=== PATIENT | female | born 1965 | race Caucasian/White ===

== ENCOUNTER 2019-11-15 05:15 | Emergency (ER) | payer SELFPAY ==
[~2019-11-15] VITALS: Ht 167 cm; Wt 97.0 kg
[2019-11-15] MEDS ORDERED: FURO-125 PO (05:31)
[2019-11-15] MEDS ORDERED: GABA-488 PO (05:31)
[2019-11-15] MEDS ORDERED: NS IV 1000 ML 1,000 ML IV SCH (05:41)
--- NOTE | 2019-11-15 05:43 | ED Back Pain ---
General Chief Complaint: Back Problems Stated Complaint: SEVERE ABD PAIN Nursing Triage Note: PT PRESENTS TO ROOM SIX AMBULATORY X1 ASSIST BY C/O SEVERE R FLANK PAIN THAT ONSET AT 0230 THIS AM. PT DENIES A HX OF KIDNEY STONES OR KIDNEY DISORDERS. STATES SHE RECENTLY REQUIRED BEING PLACED ON A WATER PILL FOR PEDAL EDEMA. Nursing Sepsis Screen: No Definite Risk Source of Information: Patient, Spouse Exam Limitations: No Limitations (DEDE BENNETT) History of Present Illness Date Seen by Provider: Nov 15, 2019 Time Seen by Provider: 05:32 Initial Comments Patient presents ER by private conveyance chief complaint about 3 hours prior to arrival she began to express some right flank pain that was constant, gripping, unrelenting. She's never had a kidney stone before. She does have a history of back pain but it's more in her neck and she does not take any medicines routinely for that. She says this is different and much more intense. She is unable to get comfortable. She is having nausea with several episodes of the vomiting. No fevers or chills, dysuria, hematuria, abdominal pain. (DEDE BENNETT) Initial Comments LMP 06/2019. Other Comments PCP: KYRA-BERTHA (BRAD PAREDES DO) Allergies and Home Medications Allergies Coded Allergies: No Known Drug Allergies (Unverified , 11/15/19) Home Medications Ciprofloxacin HCl 500 Mg Tablet, 500 MG PO BID Prescribed by: BRAD PAREDES on 11/15/19 0709 Hydrocodone Bit/Acetaminophen 1 Tab Tab, 1-2 EACH PO Q6H PRN for PAIN-MODERATE Prescribed by: BRAD PAREDES on 11/15/19 0709 Ondansetron 4 Mg Tab.rapdis, 4 MG PO Q4H Prescribed by: BRAD PAREDES on 11/15/19 0709 Tamsulosin HCl 0.4 Mg Cap, 0.4 MG PO DAILY Prescribed by: BRAD PAREDES on 11/15/19 0709 Patient Home Medication List Home Medication List Reviewed: Yes (DEDE BENNETT) Review of Systems Constitutional: No chills, No fever EENTM: No ear discharge, No ear pain Respiratory: No cough, No short of breath Cardiovascular: No chest pain, No edema Gastrointestinal: No abdominal pain, No constipation, No diarrhea; nausea, vomiting Genitourinary: No dysuria, No hematuria Musculoskeletal: see HPI, back pain; No joint pain (DEDE BENNETT) All Other Systems Reviewed Negative Unless Noted: Yes (DEDE BENNETT) Past Tecgazc-Vcegne-Huvbga Hx Patient Social History Alcohol Use: Denies Use Recreational Drug Use: No Smoking Status: Current Everyday Smoker Type Used: Cigarettes Recent Foreign Travel: No Contact w/Someone Who Travel: No Recent Infectious Disease Expo: No Recent Hopitalizations: No Physical Abuse: No Sexual Abuse: No Mistreated: No Fear: No (DEDE BENNETT) Immunizations Up To Date Tetanus Booster (TDap): Unknown PED Vaccines UTD: Yes (DEDE BENNETT) Past Medical History Surgeries: Yes Tubal Ligation Respiratory: No Cardiac: No Neurological: Yes (migraines) : 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 oz. kg; 34.00 BMI Method: General Appearance: WD/WN, Moderate Distress HEENT: PERRL/EOMI, Pharynx Normal, Moist Mucous Membranes Neck: Full Range of Motion, Normal Inspection Cardiovascular: Regular Rate, Rhythm, No Edema, Normal Peripheral Pulses Respiratory: Lungs Clear, Normal Breath Sounds, No Accessory Muscle Use, No Respiratory Distress Peripheral Pulses: 2+ Radial Pulses (R), 2+ Radial Pulses (L) Gastrointestinal: Normal Bowel Sounds, Non Tender, Soft Back: Normal Inspection, No Vertebral Tenderness; No CVA Tenderness (L); CVA Te nderness (R) Extremity: Normal Capillary Refill, Normal Inspection, Non Tender Neurologic/Psychiatric: Alert, Oriented x3 Skin: Normal Color, Warm/Dry (DEDE BENNETT) Progress/Results/Core Measures Results/Orders Lab Results Laboratory Tests Test 11/15/19 05:30 11/15/19 05:40 Range/Units Urine Color YELLOW Urine Clarity TURBID Urine pH 6.0 5-9 Urine Specific Shepherd 1.025 H 1.016-1.022 Urine Protein NEGATIVE NEGATIVE Urine Glucose (UA) NEGATIVE NEGATIVE Urine Ketones NEGATIVE NEGATIVE Urine Nitrite NEGATIVE NEGATIVE Urine Bilirubin NEGATIVE NEGATIVE Urine Urobilinogen 0.2 < = 1.0 MG/DL Urine Leukocyte Esterase 1+ H NEGATIVE Urine RBC (Auto) 1+ H NEGATIVE Urine RBC NONE /HPF Urine WBC 10-25 H /HPF Urine Squamous Epithelial Cells 5-10 /HPF Urine Crystals PRESENT H /LPF Urine Calcium Oxalate Crystals MODERATE H /LPF Urine Bacteria FEW H /HPF Urine Casts NONE /LPF Urine Mucus NEGATIVE /LPF Urine Culture Indicated YES White Blood Count 13.5 H 4.3-11.0 10^3/uL Red Blood Count 4.38 4.35-5.85 10^6/uL Hemoglobin 13.8 11.5-16.0 G/DL Hematocrit 39 35-52 % Mean Corpuscular Volume 90 80-99 FL Mean Corpuscular Hemoglobin 32 25-34 PG Mean Corpuscular Hemoglobin Concent 35 32-36 G/DL Red Cell Distribution Width 13.6 10.0-14.5 % Platelet Count 242 130-400 10^3/uL Mean Platelet Volume 9.7 7.4-10.4 FL Neutrophils (%) (Auto) 69 42-75 % Lymphocytes (%) (Auto) 20 12-44 % Monocytes (%) (Auto) 9 0-12 % Eosinophils (%) (Auto) 1 0-10 % Basophils (%) (Auto) 0 0-10 % Neutrophils # (Auto) 9.3 H 1.8-7.8 X 10^3 Lymphocytes # (Auto) 2.7 1.0-4.0 X 10^3 Monocytes # (Auto) 1.2 H 0.0-1.0 X 10^3 Eosinophils # (Auto) 0.2 0.0-0.3 10^3/uL Basophils # (Auto) 0.1 0.0-0.1 10^3/uL Sodium Level 140 135-145 MMOL/L Potassium Level 3.6 3.6-5.0 MMOL/L Chloride Level 108 H 98-107 MMOL/L Carbon Dioxide Level 19 L 21-32 MMOL/L Anion Gap 13 5-14 MMOL/L Blood Urea Nitrogen 18 7-18 MG/DL Creatinine 1.21 0.60-1.30 MG/DL Estimat Glomerular Filtration Rate 47 BUN/Creatinine Ratio 15 Glucose Level 110 H 70-105 MG/DL Calcium Level 9.3 8.5-10.1 MG/DL Corrected Calcium 9.5 8.5-10.1 MG/DL Total Bilirubin 0.4 0.1-1.0 MG/DL Aspartate Amino Transf (AST/SGOT) 22 5-34 U/L Alanine Aminotransferase (ALT/SGPT) 18 0-55 U/L Alkaline Phosphatase 57 40-136 U/L Total Protein 6.7 6.4-8.2 GM/DL Albumin 3.8 3.2-4.5 GM/DL Serum Test, Qualitative NEGATIVE NEGATIVE (BRAD PAREDES DO) My Orders Orders - BRAD PAREDES DO Tamsulosin Capsule (Flomax Capsule) (11/15/19 06:45) Ondansetron Injection (Zofran Injectio (11/15/19 06:45) Fentanyl Injection (Sublimaze Injection (11/15/19 06:45) Hcg,Qualitative Serum (11/15/19 06:41) Ua Culture If Indicated (11/15/19 06:41) Abdomen/Kub 1view (11/15/19 06:41) Ed Iv/Invasive Line Start (11/15/19 07:03) Lactated Ringers (Lr 1000 Ml Iv Solution (11/15/19 07:03) Urine Culture (11/15/19 05:30) Ciprofloxacin Tablet (Cipro Tablet) (11/15/19 07:15) (BRAD PAREDES DO) Medications Given in ED Current Medications Medications Dose Ordered Sig/Leilani Route Start Time Stop Time Status Last Admin Dose Admin Fentanyl Citrate 50 mcg ONCE ONCE IVP 11/15/19 06:45 11/15/19 06:46 DC 11/15/19 06:46 50 MCG Ketorolac Tromethamine 30 mg ONCE ONCE IVP 11/15/19 05:45 11/15/19 05:46 DC 11/15/19 05:49 30 MG Ondansetron HCl 4 mg ONCE ONCE IVP 11/15/19 05:45 11/15/19 05:46 DC 11/15/19 05:52 4 MG Ondansetron HCl 4 mg ONCE ONCE IVP 11/15/19 06:45 11/15/19 06:46 DC 11/15/19 06:46 4 MG (VITORBRAD Loren HAN) Vital Signs/I&O 11/15/19 05:21 Pulse 72 Resp 26 B/P (MAP) 116/54 (74) Pulse Ox 100 O2 Delivery Room Air (VITORBRAD Loren HAN) Blood Pressure Mean: 74 POS Progress Progress Note : Time: 05:45 Progress Note Kidney stones most likely. Pyelonephritis possible. We'll get urine labs and obtain a CT without IV contrast looking for kidney stone. Toradol 30 mg for her pain and Zofran 4 mg for her nausea. (DEDE BENNETT) Progress Note : Progress Note 0600-ASSUMED CARE FROM DR. BENNETT, PAIN AND NAUSEA GONE AT THIS TIME 0700--PAIN AND NAUSEA HAVE RETURNED, PT VOMITED X 1. ADDITIONAL MEDICATION FOR PAIN AND NAUSEA GIVEN. SYMPTOMS RESOLVED AT DISMISSAL (BRAD PAREDES DO) Diagnostic Imaging Diagonstic Imaging: CT (without IV contrast. Kidney stone study) Plain Films/CT/US/NM/MRI: abdomen, pelvis Reviewed: Reviewed [place] Study, Reviewed by Me (DEDE BENNETT) Comments CT ABDOMEN / PELVIS--2 MM RIGHT DISTAL URETERAL STONE, JUST ABOVE RIGHT UVJ, WITH MODERATE RIGHT HYDRONEPHROSIS. PUNCTATE STONE IN LEFT KIDNEY. DIVERTICULOSIS WITH OUT ACUTE DIVERTICULITIS. RIGHT OVARIAN CYST. PER RADIOLOGIST REPORT AT 0712 KUB--NON OBSTRUCTIVE GAS PATTERN, PER RADIOLOGIST REPORT AT 0820 Reviewed: Reviewed by Me (BRAD PAREDES DO) Transfer of Care Time: 06:04 Care transferred to: Dr. Paredes (DEDE BENNETT) Departure Impression Primary Impression: Right distal ureteral calculus Additional Impressions: Right ovarian cyst UTI (urinary tract infection) Disposition: 01 HOME, SELF-CARE Condition: Improved Departure-Patient Inst. Referrals: MARYANNE YOUNG MD [facility] [place]ructions: How to Strain Your Urine, Kidney Stones (DC), Ovarian Cyst (DC), Urinary Tract Infection, Adult (DC) Add. Discharge Instructions: LOTS OF CLEAR LIQUIDS--DRINK ENOUGH SO YOU ARE URINATING EVERY 2-3 HOURS STRAIN ALL URINE --RETURN ANY STONES TO DR. YOUNG'S OFFICE IBUPROFEN 600 MG EVERY 4-6 HOURS NEEDED FOR PAIN FOLLOW UP WITH DR. YOUNG THIS WEEK FOR FURTHER CARE, RETURN TO ER IF SYMPTOMS WORSEN FOLLOW UP WITH [facility] NEEDED All discharge instructions reviewed with patient and/or family. Voiced understanding. Scripts Ciprofloxacin HCl (Cipro) 500 Mg Tablet 500 MG PO BID, #20 TAB Prov: BRAD PAREDES DO 11/15/19 Ondansetron (Ondansetron Odt) 4 Mg Tab.rapdis 4 MG PO Q4H for Nausea/Vomiting, #10 TAB Prov: BRAD PAREDES DO 11/15/19 Hydrocodone Bit/Acetaminophen (Hydrocodone/Acetaminophen 5/325mg Tablet) 1 Tab Tab 1-2 EACH PO Q6H PRN for PAIN-MODERATE MDD 10 for 3 Days, #20 TAB Prov: BRAD PAREDES DO 11/15/19 Tamsulosin HCl (Flomax) 0.4 Mg Cap 0.4 MG PO DAILY, #10 CAP Prov: BRAD PAREDES DO 11/15/19 DEDE BENNETT Nov 15, 2019 05:43 BRAD BYRNES DO Nov 15, 2019 06:58 POS
[2019-11-15] MEDS ORDERED: KETOROLAC 30 MG/ML VIAL IVP ONE (05:45)
[2019-11-15] MEDS ORDERED: ONDANSETRON 4 MG/2 ML (SDV) Z0FRAN IVP ONE ×2 (05:45→06:45)
[2019-11-15 05:48] LABS: BASOPHILS # (AUTO) 0.1 10^3/uL (0.0-0.1); BASOPHILS % (AUTO) 0 % (0-10); EOSINOPHILS # (AUTO) 0.2 10^3/uL (0.0-0.3); EOSINOPHILS % (AUTO) 1 % (0-10); HEMATOCRIT 39 % (35-52); HEMOGLOBIN 13.8 G/DL (11.5-16.0); LYMPHOCYTES # (AUTO) 2.7 X 10^3 (1.0-4.0); LYMPHOCYTES % (AUTO) 20 % (12-44); MEAN CORPUSCULAR HEMOGLOBIN 32 PG (25-34); MEAN CORPUSCULAR HGB CONC 35 G/DL (32-36); MEAN CORPUSCULAR VOLUME 90 FL (80-99); MEAN PLATELET VOLUME 9.7 FL (7.4-10.4); MONOCYTES # (AUTO) 1.2 X 10^3 (0.0-1.0); MONOCYTES % (AUTO) 9 % (0-12); NEUTROPHILS # (AUTO) 9.3 X 10^3 (1.8-7.8); NEUTROPHILS % (AUTO) 69 % (42-75); PLATELET COUNT 242 10^3/uL (130-400); RED CELL DISTRIBUTION WIDTH 13.6 % (10.0-14.5); WHITE BLOOD COUNT 13.5 10^3/uL (4.3-11.0)
[2019-11-15 06:07] LABS: ALBUMIN 3.8 GM/DL (3.2-4.5); BILIRUBIN,TOTAL 0.4 MG/DL (0.1-1.0); CALCIUM 9.3 MG/DL (8.5-10.1); CREATININE SERUM 1.21 MG/DL (0.60-1.30); POTASSIUM 3.6 MMOL/L (3.6-5.0); TOTAL PROTEIN 6.7 GM/DL (6.4-8.2)
--- NOTE | 2019-11-15 06:36 | Diagnostic Imaging Report ---
PROCEDURE: CT urinary tract, rule out kidney stone. TECHNIQUE: Multiple contiguous axial images were obtained through the abdomen and pelvis without the use of intravenous contrast. Auto Exposure Controls were utilized during the CT exam to meet ALARA standards for radiation dose reduction. INDICATION: Right flank pain. No comparison is available. FINDINGS: The lung bases demonstrate no focal infiltrate or evidence of an effusion. Noncontrast appearance of the liver are unremarkable. The gallbladder is nondistended without radiodense gallstone or biliary dilatation. The spleen is normal in size. Pancreas demonstrates no focal abnormality. There is no adrenal mass. The left kidney is nonobstructed. There is a punctate stone at the inferior calyces of the left kidney. There is no stone evident within the collecting system. On the right, there is moderate right-sided hydronephrosis and hydroureter. This is secondary to a 2 mm stone within the distal right ureter just above the ureterovesicular junction. The small and large bowel are normal in caliber without obstruction. There is no abnormal bowel thickening. The appendix is normal. There is uncomplicated diverticulosis. There appears to be a right ovarian cyst measuring 3 cm. Uterus and left adnexa are unremarkable. Urinary bladder not distended. No findings of free air or free fluid or abscess. There is no pathologic adenopathy. There are atherosclerotic calcifications within the aorta. There is no acute or suspicious osseous abnormality. IMPRESSION: 1. Moderate right-sided hydronephrosis secondary to a 2 mm distal right ureteral stone just above the right UVJ. 2. Punctate nonobstructive stone within the left kidney 3. No free fluid or abscess. 4. No bowel obstruction. There is uncomplicated diverticulosis. The appendix appears normal. 5. Right ovarian cyst. Dictated by: Dictated on workstation # [id number]
[2019-11-15] MEDS ORDERED: fentaNYL INJECTION 100 MCG/2 ML AMP IVP ONE (06:45)
[2019-11-15] MEDS ORDERED: TAMSULOSIN 0.4 MG (FLOMAX) CAP PO SCH (06:45)
[2019-11-15 06:50] LABS: BILIRUBIN,URINE NEGATIVE (NEGATIVE); CLARITY,URINE TURBID; COLOR,URINE YELLOW; GLUCOSE, URINE (UA) NEGATIVE (NEGATIVE); KETONES,URINE NEGATIVE (NEGATIVE); LEUKOCYTE ESTERASE ,URINE 1+ (NEGATIVE); NITRITE,URINE NEGATIVE (NEGATIVE); PROTEIN,URINE NEGATIVE (NEGATIVE)
[2019-11-15] MEDS ORDERED: LACTATED RINGERS 1,000 ML IV ONE (07:03)
[2019-11-15 07:05] LABS: BACTERIA,URINE FEW /HPF; CALCIUM OXALATE CRYSTALS,UR MODERATE /LPF
[2019-11-15] MEDS ORDERED: CIPR-225 PO (07:09)
[2019-11-15] MEDS ORDERED: TAMS0.4C98 PO (07:09)
[2019-11-15] MEDS ORDERED: ONDA4TAB11 PO (07:09)
[2019-11-15] MEDS ORDERED: ACHD5005 PO (07:09)
--- NOTE | 2019-11-15 07:10 | NUR ---
REPORT GIVEN TO JOSS WEBB
[2019-11-15] MEDS ORDERED: CIPROFLOXACIN 500 MG (CIPRO) TABLET PO SCH (07:15)
--- NOTE | 2019-11-15 08:16 | Diagnostic Imaging Report ---
INDICATION: Flank pain. FINDINGS: Bowel gas pattern is nonspecific. There are no abnormal abdominal calcifications. The osseous structures are unremarkable. IMPRESSION: Nonspecific bowel gas pattern. Dictated by: Dictated on workstation # [id number]
[2019-11-15 08:25] VITALS: BP 103/68
== END 2019-11-15 08:24 | disposition home or self-care (01) ==
LOC: EDUNIT# 05:15 → ER 05:17
DX: N13.2 Hydronephrosis with renal and ureteral calculous obstruction (principal); N83.202 Unspecified ovarian cyst, left side; N39.0 Urinary tract infection, site not specified; G43.909 Migraine, unspecified, not intractable, without status migrainosus; F41.9 Anxiety disorder, unspecified; F17.210 Nicotine dependence, cigarettes, uncomplicated; Z98.51 Tubal ligation status
CPT/HCPCS: 36415; 74018; 74176; 80053; 81000; 84703; 85025; 87088